=== PATIENT | female | born 1965 | race Caucasian/White ===

== ENCOUNTER 2017-04-28 11:19 | Emergency (ER) | payer OTHER ==
[~2017-04-28 11:19] MED LIST: Iopamidol 370 76% 100 ML VIAL ONE
[2017-04-28] MEDS ORDERED: Sodium Chloride 0.9% 1,000 ML ONE ×2 (11:44→14:13)
[2017-04-28] MEDS ORDERED: Ondansetron HCl/PF 4 MG/2 ML Vial ONE (11:45)
[2017-04-28 12:09] LABS: #Basophils 0.1 thou/uL (0.0-0.2); #Eosinphils 0.3 thou/uL (0.0-0.7); #Lymphocytes 3.2 thou/uL (1.20-3.40); #Monocytes 0.8 thou/uL (0.11-0.59); #Neutrophils 2.3 thou/uL (1.40-6.50); %Basophils 1.3 % (0.0-1.0); %Lymphocytes 46.8 % (21.0-51.0); %Monocytes 12.4 % (0.0-10.0); %Neutrophils 34.6 % (42.0-75.0); Hemoglobin 9.3 g/dL (12.0-16.0); Mean Corpuscular HGB CONC 30.4 g/dL (32.0-36.0); Mean Corpuscular Hemoglobin 23.5 pg (27.0-31.0); Mean Corpuscular Volume 77.2 fl (81.0-99.0); Mean Platelet Volume 6.5 fL (7.4-10.4); Platelet Count 434 thou/uL (130-400); RBC Distribution Width 15.7 % (11.5-14.5); Red Blood Cell (RBC) Count 3.94 mill/uL (4.20-5.40); White Blood Cell (WBC) Count 6.8 thou/uL (4.8-10.8)
[2017-04-28 12:10] LABS: CKMB 0.3 ng/mL (0-6.6); Troponin I Less than 0.010 ng/mL (< 0.028)
[2017-04-28 12:13] LABS: ALT (SGPT) 25 U/L (8-55); AST (SGOT) 32 U/L (5-34); Albumin 3.3 g/dL (3.5-5.0); Alkaline Phosphatase 117 U/L (40-150); Anion Gap 12 mmol/L (10-20); BUN (Urea Nitrogen) 9 mg/dL (9.8-20.1); Bilirubin, Total 0.3 mg/dL (0.2-1.2); CK (CPK) 14 U/L (29-168); Calc. Creatinine Clearance 0 mL/min (70-130); Calcium 9.1 mg/dL (7.8-10.44); Carbon Dioxide 25 mmol/L (22-29); Chloride 106 mmol/L (98-107); Estimated GFR-MDRD Greater than 90; Globulin 4.1 g/dL (2.4-3.5); Glucose 93 mg/dL (70-105); Lipase 40 U/L (8-78); Potassium 3.7 mmol/L (3.5-5.1); Protein, Total 7.4 g/dL (6.0-8.3); Sodium 139 mmol/L (136-145)
[2017-04-28 12:47] LABS: Anisocytosis SLIGHT = 6-15 cells (100X) (0-5/hpf); Hypochromia SLIGHT = 6-15 cells (100X) (0-5/hpf); MDiff Complete? YES; Microcytosis SLIGHT = 6-15 cells (100X) (0-5/hpf); PLT Morphology Comment Appears Increased
[2017-04-28 13:15] LABS: Bilirubin Negative (Negative); Blood, Urine Trace (Negative); Clarity Clear (Clear); Glucose, Urine (Dipstick) Negative (Negative); Leukocyte Negative (Negative); Nitrite Negative (Negative); Protein, Urine (Dipstick) Negative (Neg-Trace); Specific Gravity, Urine 1.015 (1.005-1.030); Urobilinogen 0.2 mg/dL (0.2-1.0)
[2017-04-28 13:27] LABS: Bacteria/HPF None Seen HPF (None Seen); RBC/HPF 0-3 HPF (0-3); Squamous Epithelial 0-3 HPF (0-3); WBC/HPF None Seen HPF (0-3)
--- NOTE | 2017-04-28 15:03 | CT ---
ABDOMEN CT WITH CONTRAST PELVIC CT WITH CONTRAST: Date: 04/28/17 HISTORY: Partial small bowel resection. Patient is feeling weak and dizzy. Left lower quadrant pain, radiatin g to her back. COMPARISON: 02/20/17. TECHNIQUE: Abdomen and pelvis CT are performed with IV and enteric contrast. Coronal reformatted images are sub mitted for interpretation. FINDINGS: ABDOMEN CT: There is a small right-sided pleural effusion. Pleural fluid also tracks along the right major fissu re. Heart size is normal. No significant pericardial fluid. Visualized aorta has a normal caliber. N o periaortic fat stranding. Small amount of atelectasis in the right lower lobe is noted. Intra and extrahepatic portal vein is grossly patent. Mild hypoattenuation of the liver due to hepat ic steatosis. No obvious abnormal enhancement of the liver. Spleen, pancreas, and adrenal glands have appropriate enhancement. Gallbladder is unremarkable. Symmetric enhancement of the kidneys. Bilaterally, no obstructive uropathy. Postsurgical changes in ventral abdominal fat. Focus of increased density in the anterior midline ab dominal musculature and just deep to the peritoneum measuring 4.1 x 1.3 cm may represent a focal are a of scar tissue formation. There is no mesenteric lymphadenopathy, free air, or free fluid. Gastric mucosa and duodenum are unremarkable. There are multiple contrast-filled dilated loops of je junum as well as proximal ileum. Contrast does extend beyond these areas of dilatation and into the right hemicolon. A partial obstructive process is favored. Ileocecal junction is normal. Appendix is not appreciated. There is evidence of diverticula in the left hemicolon and sigmoid colon. No diver ticulitis. Symmetric attenuation of psoas muscles. PELVIC CT: The uterus and adnexa are unremarkable. Urinary bladder is unremarkable. No pelvic mass, lymphadenop athy, free air, or free fluid. No osteoblastic or osteolytic lesion. IMPRESSION: 1. Partial small bowel obstruction. Continued surveillance is recommended. 2. Probable area of scarring in the ventral abdominal subcutaneous fat and anterior abdominal muscu lature. 3. Small right-sided effusion with adjacent atelectasis. POS: [facility]
== END 2017-04-28 15:43 | disposition short-term general hospital (02) ==
LOC: NAV ERS 11:19
DX: K56.60 Unspecified intestinal obstruction (principal)
CPT/HCPCS: 74177; 80053; 81003; 81015; 82150; 82553; 83605; 83690; 84484; 85025; 93005; 96361; 96374; 96375; J2270; J2405; J7050

== ENCOUNTER 2018-06-15 07:01 | Emergency (ER) | payer BC ==
[2018-06-15] MEDS ORDERED: Famotidine/PF 20 mg/2ml Vial ONE (07:38)
[2018-06-15] MEDS ORDERED: Mag-Al Plus 1200 MG/1200 MG/120 MG/30 ML UDCUP ONE (07:39)
[2018-06-15] MEDS ORDERED: Ondansetron HCl/PF 4 MG/2 ML Vial ONE (07:39)
[2018-06-15] MEDS ORDERED: Lidocaine Viscous Sol 2% 15 ml UD Cup ONE (07:40)
[2018-06-15 08:17] LABS: #Basophils 0.1 thou/uL (0.0-0.2); #Eosinphils 0.2 thou/uL (0.0-0.7); #Lymphocytes 1.3 thou/uL (1.20-3.40); #Monocytes 0.9 thou/uL (0.11-0.59); #Neutrophils 6.9 thou/uL (1.40-6.50); %Basophils 0.6 % (0.0-1.0); %Eosinophils 2.1 % (0.0-10.0); %Lymphocytes 13.6 % (21.0-51.0); %Monocytes 9.4 % (0.0-10.0); %Neutrophils 74.2 % (42.0-75.0); Mean Corpuscular Hemoglobin 28.2 pg (27.0-31.0); Mean Corpuscular Volume 88.2 fL (78.0-98.0); Mean Platelet Volume 7.3 fL (7.4-10.4); Platelet Count 282 thou/uL (130-400); RBC Distribution Width 13.9 % (11.5-14.5); White Blood Cell (WBC) Count 9.2 thou/uL (4.8-10.8)
[2018-06-15 08:20] LABS: CKMB 0.3 ng/mL (0-6.6); Troponin I Less than 0.010 ng/mL (< 0.028)
[2018-06-15 08:21] LABS: ALT (SGPT) 15 U/L (8-55); AST (SGOT) 18 U/L (5-34); Albumin 3.6 g/dL (3.5-5.0); Alkaline Phosphatase 88 U/L (40-150); Anion Gap 12 mmol/L (10-20); BUN (Urea Nitrogen) 7 mg/dL (9.8-20.1); Bilirubin, Total 0.5 mg/dL (0.2-1.2); Calc. Creatinine Clearance 0 mL/min (70-130); Calcium 9.2 mg/dL (7.8-10.44); Carbon Dioxide 27 mmol/L (22-29); Chloride 105 mmol/L (98-107); Estimated GFR-MDRD 81; Globulin 2.7 g/dL (2.4-3.5); Glucose 94 mg/dL (70-105); Lipase 10 U/L (8-78); Potassium 3.5 mmol/L (3.5-5.1); Protein, Total 6.3 g/dL (6.0-8.3); Sodium 140 mmol/L (136-145)
--- NOTE | 2018-06-15 09:42 | ULT ---
RIGHT UPPER QUADRANT ULTRASOUND: HISTORY: Right upper quadrant pain and vomiting. FINDINGS: The liver demonstrates homogeneous echotexture without focal mass or intrahepatic ductal dilatation. No gallstones, gallbladder wall thickening, or pericholecystic fluid are seen. The common duct radha ures 6 mm in diameter. The right kidney and pancreas are normal. IMPRESSION: Normal exam. POS: [facility]
== END 2018-06-15 09:25 | disposition home or self-care (01) ==
LOC: NAV ERS 07:01
DX: K29.00 Acute gastritis without bleeding (principal); F41.9 Anxiety disorder, unspecified
CPT/HCPCS: 76705; 80053; 82553; 83690; 84484; 85025; 93005; 96361; 96374; 96375; J2405; S0028

== ENCOUNTER 2020-03-29 16:25 | Emergency (ER) | payer BC, OTHER ==
[2020-03-29 17:52] LABS: #Basophils 0.1 thou/uL (0.0-0.2); #Eosinphils 0.2 thou/uL (0.0-0.7); #Lymphocytes 1.6 thou/uL (1.20-3.40); #Monocytes 1.1 thou/uL (0.11-0.59); #Neutrophils 8.2 thou/uL (1.40-6.50); %Basophils 0.8 % (0.0-1.0); %Eosinophils 1.9 % (0.0-10.0); %Monocytes 9.9 % (0.0-10.0); %Neutrophils 73.4 % (42.0-75.0); Hemoglobin 11.8 g/dL (12.0-16.0); Mean Corpuscular HGB CONC 31.3 g/dL (32.0-36.0); Mean Corpuscular Hemoglobin 29.2 pg (27.0-31.0); Mean Corpuscular Volume 93.5 fL (78.0-98.0); Mean Platelet Volume 8.3 fL (7.4-10.4); Platelet Count 176 thou/uL (130-400); RBC Distribution Width 12.8 % (11.5-14.5); Red Blood Cell (RBC) Count 4.03 mill/uL (4.20-5.40); White Blood Cell (WBC) Count 11.1 thou/uL (4.8-10.8)
[2020-03-29 18:02] LABS: Prothrombin Time 12.9 sec (12.0-14.7)
[2020-03-29 18:03] LABS: PTT 27.5 sec (22.9-36.1)
[2020-03-29 18:10] LABS: ALT (SGPT) 15 U/L (8-55); AST (SGOT) 20 U/L (5-34); Albumin 3.6 g/dL (3.5-5.0); Alkaline Phosphatase 86 U/L (40-110); Anion Gap 14 mmol/L (10-20); BUN (Urea Nitrogen) 7 mg/dL (9.8-20.1); Bilirubin, Total 0.4 mg/dL (0.2-1.2); Calc. Creatinine Clearance 0 mL/min (70-130); Calcium 8.9 mg/dL (7.8-10.44); Carbon Dioxide 20 mmol/L (22-29); Chloride 107 mmol/L (98-107); Estimated GFR-MDRD 81; Glucose 87 mg/dL (70-105); Potassium 4.1 mmol/L (3.5-5.1); Protein, Total 6.6 g/dL (6.0-8.3); Sodium 137 mmol/L (136-145)
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
[2020-03-29] MEDS ORDERED: traMADol HCl 50 MG TAB ONE (18:38)
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
== END 2020-03-29 18:54 | disposition home or self-care (01) ==
LOC: NAV ERS 16:25
DX: S16.1XXA Strain of muscle, fascia and tendon at neck level, initial encounter (principal); S46.912A Strain of unspecified muscle, fascia and tendon at shoulder and upper arm level, left arm, initial encounter; S00.03XA Contusion of scalp, initial encounter; S60.222A Contusion of left hand, initial encounter; S80.02XA Contusion of left knee, initial encounter; S70.02XA Contusion of left hip, initial encounter; S80.12XA Contusion of left lower leg, initial encounter; F41.9 Anxiety disorder, unspecified; W10.9XXA Fall (on) (from) unspecified stairs and steps, initial encounter
CPT/HCPCS: 70450; 72125; 80053; 85025; 85610; 85730